=== PATIENT | male | born 1985 | race Hispanic/Latino ===

== ENCOUNTER 2022-08-26 11:49 | Emergency (ER) | payer OTHER ==
[~2022-08-26] VITALS: Ht 172.7 cm; Wt 81.6 kg
[2022-08-26] MEDS ORDERED: IBUP-1493 PO (13:11)
[2022-08-26] MEDS ORDERED: ACETAMINOPHEN 500 MG TABLET ONE (13:43)
[2022-08-26] MEDS ORDERED: ACETAMINOPHEN 500 MG TABLET PO SCH (14:00)
[2022-08-26 14:28] VITALS: BP 135/79
== END 2022-08-26 14:32 | disposition home or self-care (01) ==
LOC: EDH 11:49
DX: M24.412 Recurrent dislocation, left shoulder (principal)
CPT/HCPCS: 23650; 73030